=== PATIENT | female | born 1975 | race Caucasian/White ===

== ENCOUNTER 2018-08-22 10:37 | Outpatient (CLI) | payer OTHER | END 2018-08-22 10:54 | disposition home or self-care (01) | LOC: LAB 10:37 | DX: R73.01 Impaired fasting glucose (principal); R00.2 Palpitations; G62.89 Other specified polyneuropathies; M53.80 Other specified dorsopathies, site unspecified ==

== ENCOUNTER 2025-02-11 08:45 | Inpatient (IN) | payer OTHER ==
[~2025-02-11] VITALS: Ht 162.6 cm; Wt 74.8 kg
[2025-02-11] MEDS ORDERED: CRESTOR40 MG (10:38)
[2025-02-11] MEDS ORDERED: NAPROXEN (10:38)
[2025-02-11] MEDS ORDERED: SYMBALTA (10:40)
[2025-02-11] MEDS ORDERED: LYRICA (10:40)
[2025-02-11] MEDS ORDERED: PEPCID (10:40)
[2025-02-11] MEDS ORDERED: PRILOSEC (10:41)
[2025-02-11 10:45] LABS: URINE APPEARANCE Clear; URINE BACTERIA 3128.2 uL (0.0-1933); URINE BILIRRUBIN Negative (NEGATIVE); URINE BLOOD Trace; URINE COLOR Dark Yellow; URINE EPITHELIAL CELLS 31.8 uL (0.0-38.8); URINE GLUCOSE Negative (NEGATIVE); URINE KETONE Negative (NEGATIVE); URINE LEUKOCYTE Negative; URINE NITRATE Negative; URINE PROTEIN Negative (NEGATIVE); URINE RBC 5.2 uL (0.0-20.8); URINE UROBILINOGEN 1.0 E.U./dl; URINE WBC 20.1 uL (0.0-23.2)
[2025-02-11 10:46] LABS: URINE CAST 0.00 uL (0.0-1.40)
[2025-02-11 10:52] LABS: BASO % 0.8 % (0.1-1.2); EOS # 0.78 (0.04-0.54); EOS % 13.2 % (0.7-7.0); LYMPH # 1.39 (1.18-3.74); LYMPH % 23.5 % (19.3-53.1); MEAN PLATELET VOLUME 11.30 fl (9.4-12.4); MONO # 0.38 (0.24-0.82); MONO % 6.4 % (4.7-12.5); NEUT # 3.30 (1.56-6.13); NEUT % 55.8 % (34.0-71.1); RED CELL DISTRIBUTION WIDTH 15.9 % (11.6-14.4)
[2025-02-11 11:39] LABS: ALT/SGPT 22.0 U/L (12-78); AST/SGOT 22.0 U/L (15-37); BILIRUBIN TOTAL 0.39 mg/dL (0.3-1.2); BUN CREA RATIO 15.0 (7.0-25.0); CREATININE SERUM 0.62 mg/dL (0.55-1.02); GFR 101.89; GLOBULINA 3.2 G/DL (2.4-3.5); GLUCOSE FASTING 87.0 mg/dL (65-100); OSMOLALITY SERUM 281.0 MOSM/KG (275-295)
[2025-02-11 12:11] LABS: INR 0.96
[2025-02-16] MEDS ORDERED: PANTOPRAZOLE SODIUM 40 MG/VIAL VIAL ONE (07:42)
[2025-02-16] MEDS ORDERED: METHYLENE BLUE 50MG/10ML AMP IV ONE ×2 (10:06→10:45)
[2025-02-16] MEDS ORDERED: HEMOSTATIC MATRIX 1 KIT KIT TOP ONE (10:35)
[2025-02-16] MEDS ORDERED: CEFAZOLIN SODIUM 1,000 MG VIAL IV ONE (10:45)
[2025-02-16] MEDS ORDERED: SUGAMMADEX SODIUM 200 MG/2 ML VIAL IV ONE (10:54)
[2025-02-16] MEDS ORDERED: ONDANSETRON HCL 2 MG/ML VIAL ONE (12:55)
[2025-02-16 14:31] VITALS: BP 146/78
[2025-02-16] MEDS ORDERED: MORPHINE SULFATE 4 MG/ML CARTRIDGE IV SCH (14:37)
[2025-02-16] MEDS ORDERED: RINGERS SOLUTION,LACTATED 1,000 ML IV PUSH SCH (15:15)
[2025-02-16] MEDS ORDERED: CEFAZOLIN SODIUM 1,000 MG VIAL IV SCH (17:00)
[2025-02-16] MEDS ORDERED: ONDANSETRON HCL 2 MG/ML VIAL IV SCH (17:00)
[2025-02-17 00:23] VITALS: BP 130/70
[2025-02-17 04:00] VITALS: BP 122/76
[2025-02-17 08:25] VITALS: BP 123/70
[2025-02-17] MEDS ORDERED: OxyCODONE HCL 5 MG TABLET (ROXICODONE) PO SCH (09:40)
[2025-02-17 18:34] VITALS: BP 140/80
[2025-02-18] VITALS: BP 97/61
[2025-02-18 08:16] VITALS: BP 111/70
[2025-02-18] MEDS ORDERED: DOCUSATE SODIUM 100MG CAP PO STA (12:45)
[2025-02-18 13:00] VITALS: BP 113/69
[2025-02-18 16:37] VITALS: BP 108/71
[2025-02-19 01:13] VITALS: BP 116/67
[2025-02-19 08:13] VITALS: BP 105/68
== END 2025-02-19 10:22 | disposition home or self-care (01) | DRG 743 ==
LOC: O/R 02-16 07:00 → OB/GYN 02-16 07:00
PROVIDERS: ADMIT Obstetrics & Gynecology; ATTEND Obstetrics & Gynecology
PROC: 0DNW0ZZ Release Peritoneum, Open Approach (ICD-10-PCS; 2025-02-16)
PROC: 0UT20ZZ Resection of Bilateral Ovaries, Open Approach (ICD-10-PCS; 2025-02-16)
PROC: 0TNB0ZZ Release Bladder, Open Approach (ICD-10-PCS; 2025-02-16)
PROC: 0DNU0ZZ Release Omentum, Open Approach (ICD-10-PCS; 2025-02-16)
PROC: 0UT70ZZ Resection of Bilateral Fallopian Tubes, Open Approach (ICD-10-PCS; 2025-02-16)
PROC: 0DN80ZZ Release Small Intestine, Open Approach (ICD-10-PCS; 2025-02-16)
PROC: 0UT90ZL Resection of Uterus, Supracervical, Open Approach (ICD-10-PCS; principal; 2025-02-16 07:00)
DX: D25.1 Intramural leiomyoma of uterus (principal); D25.2 Subserosal leiomyoma of uterus; R97.1 Elevated cancer antigen 125 [CA 125]